=== PATIENT | female | born 1960 ===

== ENCOUNTER → 2025-05-15 | Outpatient (CLI) | payer MEDICARE ==
[~2025-05-15] MED LIST: ASPIRIN81 M1 PO; BELSOMRA20 MG PO; BUSPIRONE15 MG PO; CIMZIA SQ; COMBIVENT RESPIM4 GM INH; CYCLOBENZAPRINE10 MG PO; ESCITALOPRAM OXA5 MG PO; ESZOPICLONE3 MG PO; FENOFIBRATE54 MG PO; GAMUNEX-C1 GM/10 ML IJ; HYDROXYZINE HCL25 MG PO; IMURAN50 MG PO; LAMICTAL XR300 M1 PO; LISINOPRIL5 MG PO; MACROBID100 M1 PO; MELOXICAM7.5 MG PO; MESTINON60 MG PO; METHYLPREDNISOLO4 M2 PO; NATURE'S BLEND F1 MG PO; NEURONTIN600 MG PO; PERCOCET 5-3251 EACH PO; PROTONIX TR40 M1 PO; ROPINIROLE HYDRO1 MG PO; TENORMIN50 MG PO; TREXALL7.5 MG PO; VENT7GM INH; ZEPBOUND5 MG/0.5 M SQ; [UNRECOGNIZED DRUG - OTHER] PO
== END | disposition home or self-care (01) ==
LOC: RHCWE 15:40
PROVIDERS: ATTEND Nurse Practitioner Family
DX: R30.0 Dysuria (principal)